=== PATIENT | female | born 1990 | race Caucasian/White ===

== ENCOUNTER → 2024-03-20 | Outpatient (CLI) | payer BC, SELFPAY ==
--- NOTE | 2024-03-20 15:05 | RAD_ITS ---
EXAM: XR RIGHT FINGERS, 2 OR MORE VIEWS CLINICAL INDICATION: Mucous cyst TECHNIQUE: Frontal, lateral and oblique views of the fingers of the right hand. COMPARISON: No relevant prior studies available. FINDINGS: BONES/JOINTS: Unremarkable. No acute fracture. No subluxation. Normal alignment. Preservation of the joint space. No sclerotic or destructive changes observed. SOFT TISSUES: Soft tissue swelling along the radial margin of the distal phalanx, second finger. No radiopaque foreign body. RAD/Finger(s) Min 2 Views IMPRESSION: Soft tissue swelling along the radial margin of the distal phalanx, second finger. No underlying osseous abnormality. Electronically Signed: Luke Machado MD at 12:40 EST ,
== END | disposition home or self-care (01) ==
LOC: RAD 15:00
PROVIDERS: PCP Family Medicine; Referring Provider Surgery Plastic and Reconstructive Surgery; Visit Provider Surgery Plastic and Reconstructive Surgery
DX: M67.441 Ganglion, right hand (principal)
CPT/HCPCS: 73140

== ENCOUNTER → 2024-05-22 | Outpatient (CLI) | payer BC, SELFPAY ==
--- NOTE | 2024-05-22 15:46 | MRI_ITS ---
PROCEDURE: MRI of the right index finger without and with intravenous contrast. REASON FOR EXAM: Cyst of the right index finger. TECHNIQUE: Multiplanar, multisequence MRI images of the right hand/right 2nd finger without and with intravenous contrast. 15 cc Dotarem IV contrast was administered. COMPARISON: None available. FINDINGS The included osseous structures of the right hand/fingers appear intact, without acute fracture or gross bony destructive process. The joint spaces are generally maintained. Major flexor and extensor tendons of the right 2nd finger appear intact. There is a lobulated 1.5 cm craniocaudad dimension cystic structure at the radial margin of the distal interphalangeal joint. No gross destruction of the adjacent cortex of the distal phalanx right 2nd finger. No abnormal widening of the distal interphalangeal joint. On postcontrast images, this cystic structure appears to demonstrate some enhancement. MRI/Upper Ext No Joint W/WO Cont IMPRESSION: No acute bony abnormality of the right hand/right 2nd finger. A 1.5 cm lobulated cystic structure near the radial margin of the distal interp halangeal joint right 2nd finger may represent a complex synovial cyst versus a solid lesion. This does appear to demonstrate s ome contrast enhancement on postcontrast images. Excisional biopsy or soft tissue sampling is suggested to exclude the possibili ty of a neoplastic lesion. There does not appear to be gross destruction of the adjacent distal phalanx of the right 2nd finger. The flexor and extensor tendon of the right 2nd finger appear intact. Reading Location: [facility]
== END | disposition home or self-care (01) ==
LOC: MRI 15:35
PROVIDERS: PCP Family Medicine; Referring Provider Surgery Plastic and Reconstructive Surgery; Visit Provider Surgery Plastic and Reconstructive Surgery
DX: R22.31 Localized swelling, mass and lump, right upper limb (principal); M67.441 Ganglion, right hand
CPT/HCPCS: 73220; A9575; A4216

== ENCOUNTER 2024-06-24 11:37 | Day surgery (SDC) | payer BC, SELFPAY ==
[2024-06-24] VITALS (9 sets, daily range): BP systolic 103–117; BP diastolic 48–70; PULSE 55–113; RESP 14–16; TEMP 36.2–37.1; O2SAT 97–100; BMI 25.6
[2024-06-24 11:58] LABS: Internal QC Validated? YES +Cl - CLEAR BKGD; Pregnancy, Urine Negative Negative
--- NOTE | 2024-06-24 12:21 | HP.PCM.SX_ITS ---
HPI - General HPI Narrative Mariana Trimble is a delightful 33-year-old female with history of a mucous cyst on the right index finger referred to us by [facility]. Reports that it has been there for approximately 1 year, increasing in size,and does not drain. Abx therapy and OTC wart removers were ineffective. No new upper extremity/axillary lumps/bumps, no constitutional symptoms. She is not a smoker The patient reports that they do not have any personal or family history of bleeding or clotting disorders. 29 May 2024: Doing well. Got an MRI and we discussed the results today. No change in the mass. Current Encounter (DATE OF SURGERY H&P UPDATE): I saw and examined the patient this morning in pre-operative holding. We discussed risks and benefits of today's surgery and they would like to proceed. NO CHANGE in health history since last seen and evaluated. Ready to proceed with surgery. [facility] Medical History Wears glasses Marijuana use Alcohol use Migraine headache Syncope Smoker Home Medications ?Medication ?Instructions ?Recorded ?Last Taken ?Type NK 03/20/24 Unknown History Allergy/AdvReac Type Severity Reaction Status Date / Time No Known Allergies Allergy Verified 06/24/24 11:58 Surgical History Hx of oral surgery History of root canal procedure Social History Smoking Status: Current every day smoker tobacco type: cigarettes alcohol intake: current substance use type: does not use additional social history: denies aspirin use, uses ibuprofen Vital Signs Vital Signs Vital Signs: 06/24/24 11:59 06/24/24 11:59 Temperature 98.7 F Temperature Source Temporal Pulse Rate 113 H Respiratory Rate 16 Respiratory Pattern Normal Blood Pressure 117/48 L Blood Pressure Mean 71 Blood Pressure Source Monitor Blood Pressure Position Sitting Blood Pressure Location Left Arm Pulse Ox 100 Oxygen Delivery Method Room Air Weight Weight: 178 lb 9.191 oz Body Mass Index (BMI) 25.6 Physical Exam Narrative Right UPPER EXTREMITY No Right axillary or antecubital lymphadenopathy on my exam Palpation: No TTP Inspection: No drainage/fluctuance. Right index finger cyst on the radial side. No Tinel sign. Motor: Able to bend and extend all MP, PIP, and DIP joints. Sensory: Intact to light touch on the radial and ulnar borders. Vascular: Finger tips are warm and well perfused with <2 second capillary refill. Results Lab / Micro Data Labs: Laboratory Results - last 24 hr 06/24/24 11:50: Urine Test Negative Imaging PROCEDURE: MRI of the right index finger without and with intravenous contrast. REASON FOR EXAM: Cyst of the right index finger. TECHNIQUE: Multiplanar, multisequence MRI images of the right hand/right 2nd finger without and with intravenous contrast. 15 cc Dotarem IV contrast was administered. COMPARISON: None available. FINDINGS The included osseous structures of the right hand/fingers appear intact, without acute fracture or gross bony destructive process. The joint spaces are generally maintained. Major flexor and extensor tendons of the right 2nd finger appear intact. There is a lobulated 1.5 cm craniocaudad dimension cystic structure at the ra dial margin of the distal interphalangeal joint. No gross destruction of the adjacent cortex of the distal phalanx right 2nd finger. No abnormal widening of the distal interphalangeal joint. On postcontrast images, this cystic structure appears to demonstrate some enhancement. MRI/Upper Ext No Joint W/WO Cont IMPRESSION: No acute bony abnormality of the right hand/right 2nd finger. A 1.5 cm lobulated cystic structure near the radial margin of the distal interphalangeal joint right 2nd finger may represent a complex synovial cyst versus a solid lesion. This does appear to demonstrate some contrast enhancement on postcontrast images. Excisional biopsy or soft tissue sampling is suggested to exclude the possibility of a neoplastic lesion. There does not appear to be gross destruction of the adjacent distal phalanx of the right 2nd finger. The flexor and extensor tendon of the right 2nd finger appear intact. Reading Location: [facility] Assessment & Plan Assessment/Plan (1) Finger mass, right: PLAN: Plan We discussed the differential diagnosis for the mass. Common masses in the hand include ganglion cyst of tendon sheath, giant cell tumor of tendon sheath, and lipoma. All these masses are benign. We also discussed that over 95% of the masses found in the hand and fingers are benign, and not cancerous. We talked about high likelihood of recurrence with certain hand masses, even if benign, and need for monitoring. We discussed the pathology and the natural course of the mucous cyst. We talked about how they drain at times and can sometimes get infected and connect with the joint so it can be a problem. We talked about the risks, benefits, and alternatives (including aspiration) to excision. I talked to her about debridement of any osteophytes and the stalk of the cyst if present. She understands the risks of recurrence of the cyst, damage to surrounding structures including the collateral ligaments or the terminal slip (possibility of mallet deformity or joint instability) as well as damage to nerves in the area (numbness), possibility of infection, poor scaring, bleeding, flap loss or flap failure, finger deformity/ligament injuries, chronic pain/nerve pain, need for wound care, need for repeat operations, and the risk of anesthesia. She elected to proceed with excision and closure, with possible local soft tissue rearrangement/adjacent tissue transfer (discussed rotational flap and risks of flap failure). She understands a plan for immobilization for 1 month at least in extension of the DIP joint. INTERVAL H&P PLAN, DATE OF SURGERY: We will proceed with surgery today. I reiterated the above noted risks, benefits, and alternatives to surgery.
--- NOTE | 2024-06-24 12:21 | PRE.ANES_ITS ---
ASA Classification* ASA Classification ASA Classification: 2 Assessment & Plan Anesthesia* Anesthesia Assessment Anesthesia Assessment: Discussed sedation and/or anesthesia options, risks, benefits, and alternatives with patient/parents/legal guardian/POA. Questions invited. The patient/parents/legal guardian/POA seems to understand and agrees to proceed with anesthesia plan. Reviewed the physical assessment, medical history, allergy history and patient home medications list prior to surgery/procedure/anesthetic and documented any changes. Performed airway and anesthesia risk assessments. Anesthesia Type Anesthesia Type: MAC and Block History Source History Obtained from:: Patient and Chart Anesthesia Focused Assessment* Temperature: 98.7 F Pulse Rate: 113 Blood Pressure: 117/48 Respiratory Rate: 16 Pulse Ox: 100 Oxygen Delivery Method: Room Air Airway Assessment Mouth opens: 1 cm Mallampati Score: I Teeth Condition: Caps/Crowns (Patient has #8 #9. They Are Tight.) Neck Range of motion (ROM): Full ROM Focused Labs Anesthesia Preop lab: CBC CHEMISTRY COAG Urine Test Negative Negative 06/24/24 11:50 06/24/24 Pre-Assessment Diagnosis/Proposed Procedure Planned Operative Procedure(s): RIGHT INDEX FINGER MUCOUS CYST EXCISION Anesthesia History Anesthesia History - proposal engineer: Anesthesia History - proposal engineer Hx Hospitalization No 06/19/24 10:33 Any Problems With Anesthesia No 06/19/24 10:33 Cholinesterase deficiency No 06/19/24 10:33 You/Your Family Experience No 06/19/24 10:33 fever (hyperthermia) with Relationship Recent Exposure to Contagious No 06/24/24 11:59 Disease Does patient have nerve No 06/19/24 10:33 stimulator Patient instructed to have device shut off --Does patient have Pacemaker No 06/24/24 11:59 or ICD? When Was Last Pacemaker Check QUESTION #4 FULL TEXT: You/Your Family Experience fever (hyperthermia) with Anesthesia Last Oral Intake Last Oral intake: Last Oral Intake NPO since 07:00 06/24/24 11:59 Meds taken in AM with sips of No 06/24/24 11:59 water? Meds patient instructed to take am of surgery Any additional information?: Yes NPO since: 07:30 (Patient had black coffee and water at 7:30 AM.) PONV PONV - proposal engineer: PONV - proposal engineer Female Yes 06/19/24 10:33 HX of Motion Sickness No 06/19/24 10:33 HX of N/V After Surgery No 06/19/24 10:33 Non-Smoker No 06/19/24 10:33 Duration of Surgery greater No 06/19/24 10:33 than 60 minutes Number of Risk Factors 1 06/19/24 10:33 PONV Score Low Risk 06/19/24 10:33 Height & Weight Height & Weight: Anesthesia: Height & Weight Height 5 ft 10 in 06/24/24 11:59 Weight: 81 kg 06/24/24 11:59 Body Mass Index (BMI) 25.6 06/24/24 11:59 Respiratory Assessment Respiratory Assessment - proposal engineer: Respiratory Tract Infection Hx - proposal engineer Hx Respiratory Tract Infection No 06/19/24 10:33 STOP Sleep Apnea STOP Sleep Apnea - proposal engineer: STOP Sleep Apnea - proposal engineer Hx Hypertension No 06/19/24 10:33 Hx Sleep Apnea No 06/19/24 10:33 CPAP BIPAP Do you snore loudly (louder No 06/19/24 10:33 than talking or can be heard Do you often feel tired/ Yes 06/19/24 10:33 fatigued/ sleepy during daytime? Has anyone observed you stop No 06/19/24 10:33 breathing during sleep? STOP Results Negative 06/19/24 10:33 QUESTION #5 FULL TEXT : Do you snore loudly (louder than talking or can be heard through closed doors)? Tobacco Use History Tobacco Use History - proposal engineer: Tobacco Use History - proposal engineer Tobacco Use Smoking Status Current every day smoker 06/19/24 10:33 Hx Tobacco Use Yes 06/19/24 10:33 Years Smoking Packs Smoked per Day Smoking Cessation Date was within the last 15 years Hx Smoking Cessation Date Hx Smoking Cessation Counseling Any additional information?: Yes Smoking Status: Current every day smoker (Patient did smoke today.) Hematologic Medial History Hematologic Hx - proposal engineer: Hematologic Medical Hx - sap hana developer Hx of Blood Transfusion No 06/19/24 10:33 Hx of Transfusion in last 3 No 06/19/24 10:33 Months Date of Last Transfusion (if within last 3 months) Ever experience any problems No 06/19/24 10:33 with transfusion(s)? Specify any problems Hx of Preganancy in last 3 No 06/19/24 10:33 Months Nurse Filling Out Transfusion DSCHRIBER 06/19/24 10:33 & Questions: Date: 06/19/24 06/19/24 10:33 Time: 10:34 06/19/24 10:33 Patient unable to answer at this time (ie. confused, unrespo /Reproduction History /Reproductive History - proposal engineer: /Reproductive Hx- proposal engineer Hx Now No 06/19/24 10:33 Gestational Age (in weeks): EDC: Hx Hx Para Hx Section SAB No 06/19/24 10:33 Active Medications Active Medications: Current Medications Generic Name Dose Route Start Last Admin Trade Name Freq PRN Reason Stop Dose Admin Cefazolin Sodium 2 gm/ N/A 20 mls @ 400 mls/hr 06/24/24 13:20 IV 06/24/24 13:22 PREOP ONE PFSH Medical History Wears glasses Marijuana use Alcohol use Migraine headache Syncope Smoker Home Medications ?Medication ?Instructions ?Recorded ?Last Taken ?Type NK 03/20/24 Unknown History Allergy/AdvReac Type Severity Reaction Status Date / Time No Known Allergies Allergy Verified 06/24/24 11:58 Surgical History Hx of oral surgery History of root canal procedure Social History Smoking Status: Current every day smoker tobacco type: cigarettes alcohol intake: current substance use type: does not use additional social history: denies aspirin use, uses ibuprofen Review of Systems (Anesthesia) ROS Narrative System reviewed and no additional complaints, except as documented.
[2024-06-24] MEDS: Cefazolin 2 GM in Syringe IV (12:45)
[2024-06-24] MEDS: Lidocaine 1% (20 ml mdv) 20 ML Vial (12:56)
[2024-06-24] MEDS: Bupivacaine 0.25% 30 ML Vial (12:56)
[2024-06-24] MEDS: Bupiv/Epi 0.25% 30 ML Vial (13:17)
--- NOTE | 2024-06-24 13:20 | MASS_PTH ---
PATIENT: JERE GARCIA LOC: [facility] [place] U#:[id number] AGE/SX: 33/F ROOM: RE06/24/[address]: Dr. Gen Valentine MD : 1990 BED: DIS: 06/24/2024 SPEC #: [id number] RECD: 06/25/24 10:20 STATUS: TYREE MARCELO #: [id number] MELINDA: 06/24/24 13:[address]: Gen Valentine DEPT: SURGICAL PATHOLOGY RECD BY: Krishan Stanley ENTERED: 06/25/24 10:21 SP TYPE: Mass OTHR DR: Dr. Devonte Jay MD Tissues: A - Finger, NOS Procedures: Immunohistochemical Stains Surgery Specimen Level V IHC Stain ADDITIONAL HEADER OPERATION: Right index finger mucous cyst excision PRE-OP DIAGNOSIS: Mucous cyst on right index finger TISSUE SUBMITTED: A- Right index finger mass MICROSCOPIC DIAGNOSIS A. Right index finger, soft tissue mass, excisional biopsy: * Tenosynovial giant cell tumor, localized type, involving the surgical margin - see note. Note: IHCs were performed. Vimentin and CD68 are positive. SMA highlights blood vessels. Pancytokeratin, Desmin, and Melan-A are negative. MICROSCOPIC DESCRIPTION Slides are reviewed. These tests were developed and their performance characteristics determined by [facility]. They may not have been cleared or approved by the U.S. Food and Drug Administration. The FDA has determined that such clearance or approval is not necessary. The above immunohistochemical/dualISH markers are ordered and reviewed by the Pathologist. GROSS DESCRIPTION A. Received in fixative is one container labeled with the patient's name and designated Right index finger mass. The specimen consists of two fragments of firm tissue measuring 1.3 x 0.8 x 0.5cm and 1.0 x 0.8 x 0.7cm. The entire specimen is submitted in one cassette. 06/25/2024 CPT:90876 ,[id number]
--- NOTE | 2024-06-24 13:25 | PCM.POST.ANE ---
Anesthesia: Postop Eval I Current Vital Signs Temperature: 97.6 F Pulse Rate: 72 Blood Pressure: 106/62 Respiratory Rate: 14 Pulse Ox: 98 Oxygen Delivery Method: Room Air Assessment Airway patent: Yes Spontaneous unlabored respirations: Yes Mental status: Awake nausea: No Vomiting: No Anesthesia Complication: No Fluid Hydration Crystalloid volume administer (ml): 500 Total IV fluid infused: 500 Progress Note Anesthesia document: Postop Eval 1 completed: Yes
--- NOTE | 2024-06-24 14:21 | POSTOPAN2_ITS ---
Anesthesia Postop Eval I Sum Postop Eval Completion status Anesthesia document: Postop Eval 1 completed: Yes Anesthesia Postop Eval I Summary Anesthesia Postop Eval I Summary: Anesthesia Postop Eval I: Assessment Summary Airway patent Yes 06/24/24 13:26 POST FORM REMOVER.HBARR Spontaneous unlabored Yes 06/24/24 13:26 POST FORM REMOVER.HBARR respirations Mental status Awake 06/24/24 13:26 POST FORM REMOVER.HBARR nausea No 06/24/24 13:26 POST FORM REMOVER.HBARR Vomiting No 06/24/24 13:26 POST FORM REMOVER.HBARR Anesthesia Postop Eval I: Fluid Summary Crystalloid volume administer 500 06/24/24 13:26 POST FORM REMOVER.HBARR (ml) Colloids volume administered ( ml) Blood Product volume administered (ml) Total IV fluid infused 500 06/24/24 13:26 POST FORM REMOVER.HBARR Anesthesia Postop Eval I: Summary Notes Anesthesia Complication No 06/24/24 13:26 POST FORM REMOVER.HBARR Anesthesia Complication Comment: Post-operative progress note Anesthesia: Postop Eval II Evaluation Mental status: Awake Pain Level: 3 nausea: No Vomiting: No
--- NOTE | 2024-06-24 14:21 | PCM.POSTANE2 ---
Anesthesia Postop Eval I Sum Postop Eval Completion status Anesthesia document: Postop Eval 1 completed: Yes Anesthesia Postop Eval I Summary Anesthesia Postop Eval I Summary: Anesthesia Postop Eval I: Assessment Summary Airway patent Yes 06/24/24 13:26 BONDING MACHINE OPERATOR.HBARR Spontaneous unlabored Yes 06/24/24 13:26 BONDING MACHINE OPERATOR.HBARR respirations Mental status Awake 06/24/24 13:26 BONDING MACHINE OPERATOR.HBARR nausea No 06/24/24 13:26 BONDING MACHINE OPERATOR.HBARR Vomiting No 06/24/24 13:26 BONDING MACHINE OPERATOR.HBARR Anesthesia Postop Eval I: Fluid Summary Crystalloid volume administer 500 06/24/24 13:26 BONDING MACHINE OPERATOR.HBARR (ml) Colloids volume administered ( ml) Blood Product volume administered (ml) Total IV fluid infused 500 06/24/24 13:26 BONDING MACHINE OPERATOR.HBARR Anesthesia Postop Eval I: Summary Notes Anesthesia Complication No 06/24/24 13:26 BONDING MACHINE OPERATOR.HBARR Anesthesia Complication Comment: Post-operative progress note Anesthesia: Postop Eval II Evaluation Mental status: Awake Pain Level: 3 nausea: No Vomiting: No
--- NOTE | 2024-06-24 15:14 | PCM.OPRPT ---
Operative Report (Standard) Operative Information Date of Procedure: 06/24/24 Pre-Operative Diagnosis: Right index finger mass, radial side near finger tip Post-Operative Diagnosis: Same Surgery/Procedure Performed: 1) Excision of right index finger mass, radial side near the finger tip, 1 x 1 cm (CPT 68368) pot pusher: Yes Shredded Filler Cigar Maker Machine: Miranda Morse Tasks completed by graduate research assistant: Retracting Type of Anesthesia: Local MAC (7 cc of a 50/50 mixture of 0.25% Marcaine and 1% Lidocaine ) RN Documented Start/Stop Times: Operation Date: 06/24/24 13:20 Case Time Into Pre-Op 06/24/24 11:44 Out of Pre-Op 06/24/24 12:35 Anesthesia Start 06/24/24 12:40 Into Room 06/24/24 12:40 Procedure Start 06/24/24 12:58 Procedure End 06/24/24 13:18 Anesthesia End 06/24/24 13:22 Out of Room 06/24/24 13:22 Into Recovery 06/24/24 13:23 Into Phase II Recovery 06/24/24 13:43 Out of Recovery 06/24/24 13:43 Out of Phase II 06/24/24 14:44 Procedure Start Time: 12:58 Procedure Stop Time: 13:18 Select all DRAINS/GRAFTS/IMPLANTS that apply: None Estimated Blood Loss: Minimal Specimen collected: Yes Description of specimen(s) removed: Mass from the right index finger Description of surgery: Indications: Mariana Trimble is a delightful 33-year-old female with history of a right index finger mass. Presents today for excision. I talked her extensively about the risks, benefits, and alternatives to excision and closure. She elected to proceed. Procedure details: Patient was correctly identified in preoperative holding and taken back to the operating room where she was administered sedation and a local digital block. A turnicot was applied and care was taken to remove it at the end of the case. She was prepped and draped in sterile fashion. A 15 blade was used to make a direct incision over the mass on the radial side of the distal right index finger near the tip. Careful dissection with scissors was taken around the index finger mass which had 2 distinct well-circumscribed areas which were easily removed. There did not appear to be any residual areas of tumor. The wound was washed out with copious amounts normal saline. The mass measured approximately 1 x 1 cm and was sent to pathology. The turnicot was removed and hemostasis was obtained with bipolar electrocautery and irrigated again. Closure was performed with interrupted horizontal mattress 4-0 nylon sutures. Xeroform , Andrew and Coban were applied (loosely). The patient tolerated the procedure well and was awakened taken the PACU in stable condition. Postoperative plan: Follow-up pathology and follow-up in clinic in 1 week for wound check. She can remove the dressing on Saturday, 26 June 2024, and then get it wet in the shower with application of a Band-Aid daily to the incision line. Surgical Findings: Grossly consistent with a giant cell tumor Complications Complications: No Admit VTE Documentation VTE Mechan Device Prophylaxis: SCD's
== END 2024-06-24 14:44 | disposition home or self-care (01) ==
LOC: SDC 11:42 → AC 11:43
PROVIDERS: Anesthesiology; PCP Family Medicine; Referring Provider Surgery Plastic and Reconstructive Surgery; Visit Provider Surgery Plastic and Reconstructive Surgery
PROC: (CPT 26055; principal; 2024-06-24 13:10)
DX: D48.115 Desmoid tumor of upper extremity and shoulder girdle (principal); F17.210 Nicotine dependence, cigarettes, uncomplicated
CPT/HCPCS: 26115; 81025; 88304; 88307; 88341; 88342; A4216; J2405